=== PATIENT | female | born 2000 | race Caucasian/White ===

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

== ENCOUNTER 2020-01-03 20:37 | Emergency (ER) | payer OTHER ==
[~2020-01-03] VITALS: Ht 162.6 cm; Wt 83.0 kg
[2020-01-03 20:39] VITALS: BP 128/65; Ht 162.6 cm; Wt 83.0 kg
== END 2020-01-03 21:13 | disposition home or self-care (01) ==
LOC: ED 20:37
DX: Z48.01 Encounter for change or removal of surgical wound dressing (principal); J45.909 Unspecified asthma, uncomplicated; Z90.49 Acquired absence of other specified parts of digestive tract

== ENCOUNTER 2020-03-15 18:02 | Emergency (ER) | payer OTHER ==
[~2020-03-15] VITALS: Ht 165.1 cm; Wt 81.2 kg
[2020-03-15 18:11] VITALS: Ht 165.1 cm; Wt 81.2 kg
[2020-03-15 18:49] LABS: BASOPHIL % 0.3 % (0-2); PLATELET COUNT 285 x10^3mcL (130-400)
[2020-03-15 18:57] LABS: RED CELL DISTRIBUTION WIDTH 16.8 % (11.5-14.5)
[2020-03-15 20:01] LABS: microscopic required? YES; urine erythrocyte 2+ (NEGATIVE)
[2020-03-15 20:29] VITALS: BP 104/51
== END 2020-03-15 20:29 | disposition home or self-care (01) ==
LOC: ED 18:02
PROVIDERS: Emergency Medicine
DX: O20.0 Threatened abortion (principal); O23.41 Unspecified infection of urinary tract in pregnancy, first trimester; O99.511 Diseases of the respiratory system complicating pregnancy, first trimester; Z3A.00 Weeks of gestation of pregnancy not specified; Z90.49 Acquired absence of other specified parts of digestive tract; Z88.8 Allergy status to other drugs, medicaments and biological substances
CPT/HCPCS: 36415

== ENCOUNTER 2020-03-18 12:24 | Emergency (ER) | payer OTHER ==
[~2020-03-18] VITALS: Ht 165.1 cm; Wt 80.7 kg
[2020-03-18 12:28] VITALS: Ht 165.1 cm; Wt 80.7 kg
[2020-03-18 14:59] VITALS: BP 115/61
== END 2020-03-18 14:59 | disposition home or self-care (01) ==
LOC: ED 12:24
DX: O20.0 Threatened abortion (principal); J45.909 Unspecified asthma, uncomplicated; Z90.49 Acquired absence of other specified parts of digestive tract; Z88.8 Allergy status to other drugs, medicaments and biological substances

== ENCOUNTER 2020-03-21 18:44 | Emergency (ER) | payer OTHER ==
[~2020-03-21] VITALS: Ht 165.1 cm; Wt 80.7 kg
[2020-03-21 19:06] VITALS: Ht 165.1 cm; Wt 80.7 kg
[2020-03-21 19:49] LABS: BASOPHIL % 0.2 % (0-2); PLATELET COUNT 283 x10^3mcL (130-400)
[2020-03-21 19:50] LABS: RED CELL DISTRIBUTION WIDTH 16.6 % (11.5-14.5)
[2020-03-21 21:27] VITALS: BP 115/58
== END 2020-03-21 21:27 | disposition home or self-care (01) ==
LOC: ED 18:44
PROVIDERS: Emergency Medicine
DX: O20.0 Threatened abortion (principal); O99.519 Diseases of the respiratory system complicating pregnancy, unspecified trimester; Z3A.00 Weeks of gestation of pregnancy not specified; Z90.49 Acquired absence of other specified parts of digestive tract; Z88.8 Allergy status to other drugs, medicaments and biological substances
CPT/HCPCS: 36415; Q0092

== ENCOUNTER 2020-10-12 18:14 | Emergency (ER) | payer OTHER ==
[~2020-10-12] VITALS: Ht 165.1 cm; Wt 77.1 kg
[2020-10-12 18:18] VITALS: Ht 165.1 cm; Wt 77.1 kg
[2020-10-12 19:51] LABS: CALCIUM 8.5 mg/dL (8.5-10.1); CARBON DIOXIDE 23.6 mmol/L (21-32); CHLORIDE SERUM 103 mmol/L (98-107); CREATININE SERUM 0.6 mg/dL (0.6-1.0); GFR1 > 60 mL/min; GLUCOSE SERUM 98 mg/dL (74-106); POTASSIUM SERUM 3.3 mmol/L (3.5-5.1); SODIUM SERUM 139 mmol/L (136-145)
[2020-10-12 19:52] LABS: BASOPHIL % 0.2 % (0.2-1.3); PLATELET COUNT 273 x10^3mcL (179-408)
[2020-10-12 19:58] LABS: ALKALINE PHOSPHATASE 105 U/L (46-116); ALT/SGPT 15 U/L (14-59); AST/SGOT 14 U/L (15-37); BILIRUBIN TOTAL 0.2 mg/dL (0.20-1.00); LIPASE 94 IU/L (73-393); TOTAL PROTEIN, SERUM 7.2 g/dL (6.4-8.2)
[2020-10-12 20:09] LABS: RED CELL DISTRIBUTION WIDTH 16.5 % (12.3-17.7)
[2020-10-12 20:10] LABS: ALBUMIN 2.9 g/dL (3.4-5.0)
[2020-10-12 21:07] LABS: rbc morphology (normal/abnorm) ABNORMAL (NORMAL)
[2020-10-12 21:08] LABS: schistocyte (helmet cell) 1+
[2020-10-13 01:27] VITALS: BP 110/56
== END 2020-10-13 01:27 | disposition home or self-care (01) ==
LOC: ED 18:14
PROVIDERS: Student in an Organized Health Care Education/Training Program
DX: O21.0 Mild hyperemesis gravidarum (principal); J45.909 Unspecified asthma, uncomplicated; Z3A.19 19 weeks gestation of pregnancy; Z88.8 Allergy status to other drugs, medicaments and biological substances; Z90.49 Acquired absence of other specified parts of digestive tract
CPT/HCPCS: 82962; J2405; J7042; Q0162